=== PATIENT | male | born 1945 | race Caucasian/White ===

== ENCOUNTER 2024-02-19 09:30 | Outpatient (RCR) | payer MEDICARE, BC, SELFPAY | END 2024-04-21 15:27 | disposition home or self-care (01) | PROVIDERS: PCP Surgery; Visit Provider Surgery | DX: M25.572 Pain in left ankle and joints of left foot (principal); G89.29 Other chronic pain; M25.672 Stiffness of left ankle, not elsewhere classified; M62.572 Muscle wasting and atrophy, not elsewhere classified, left ankle and foot; Z51.89 Encounter for other specified aftercare | CPT/HCPCS: 97110; 97112; 97161 ==

== ENCOUNTER 2025-02-24 16:45 | Outpatient (RCR) | payer MEDICARE, BC, SELFPAY | END 2025-03-17 09:26 | disposition home or self-care (01) | PROVIDERS: PCP Surgery; Visit Provider Surgery | DX: M25.511 Pain in right shoulder (principal); Z51.89 Encounter for other specified aftercare | CPT/HCPCS: 97110; 97140; 97161 ==